=== PATIENT | male | born 1940 | race Caucasian/White ===

== ENCOUNTER 2018-05-31 12:48 | Outpatient (CLI) | payer MEDICARE, BC | END 2018-05-31 12:49 | disposition home or self-care (01) | LOC: ULT 12:48 | PROVIDERS: ATTEND Internal Medicine | DX: R07.9 Chest pain, unspecified (principal); I08.1 Rheumatic disorders of both mitral and tricuspid valves | CPT/HCPCS: 93306 ==

== ENCOUNTER 2020-08-13 08:07 | Outpatient (CLI) | payer MEDICARE, BC ==
--- NOTE | 2020-08-13 11:28 | CT ---
CT ANGIOGRAM NECK WITH CONTRAST: DATE: 08/13/2020. HISTORY: An 80-year-old male with TIA. TECHNIQUE: IV injection of Isovue-370. Arterial bolus chasing technique scan from aortic arch to skull base. Coronal and sagittal 3D MIP reconstructions. NASCET criteria used to evaluate degree of internal carotid artery stenosis. FINDINGS: There is a tiny focal minimal calcified plaque in the right proximal internal carotid artery near its origin that does not cause any stenosis. There is no stenosis of the bilateral internal carotid, bilateral common carotid, brachiocephalic, ri ght subclavian, or bilateral vertebral arteries. There is tiny focal minimal plaque at origin of the right vertebral artery that does not cause stenosis. There is high-grade degenerative disk disease at C5-6 and C6-7. There are multiple levels of right-sided severe facet osteoarthrosis. There is a tiny 5 mm right apical segment upper lobe pulmonary nodule close to the posterolateral pleural surfac e. According to Fleischner Society pulmonary nodule recommendations, a nodule less than 6 mm in a lo w risk patient requires no routine followup. In high risk patients, optional CT at 12 months is plaza ggested. It should be noted that this is a CTA of the neck, and only the lung apices are imaged. IMPRESSION: 1. No stenosis of major arteries of neck. 2. Cervical spondylosis. 3. Tiny 5 mm right apical pulmonary nodule. See above comments. POS: [facility]
[2020-08-13] MEDS ORDERED: Iopamidol-370 76% 500 ML 1 ML ONE (12:52)
== END 2020-08-13 08:08 | disposition home or self-care (01) ==
LOC: BICCT 08:07
PROVIDERS: ATTEND Internal Medicine
DX: G45.9 Transient cerebral ischemic attack, unspecified (principal); M47.812 Spondylosis without myelopathy or radiculopathy, cervical region; R91.1 Solitary pulmonary nodule
CPT/HCPCS: 70498; Q9967

== ENCOUNTER 2020-08-14 08:19 | Outpatient (CLI) | payer MEDICARE, BC ==
--- NOTE | 2020-08-14 10:20 | MRI ---
MRI brain with and without contrast: DATE: 08/14/2020 HISTORY: 80-year-old male with TIA G 45.9 TECHNIQUE: Multiplanar, multisequence MRI of the brain obtained pre and post IV injection of gadolinium based co ntrast agent. FINDINGS: There is no obstructive hydrocephalus. There is no midline shift or any other evidence of mass effect . There is no extra-axial fluid collection. There are mild chronic ischemic white matter changes due to microvascular atherosclerosis. There is otherwise no major intra-axial signal abnormality, abn ormal enhancement, mass, recent hemorrhage, or restricted diffusion. There is a large number of tiny dilated Virchow-Asher perivascular spaces throughout the bilateral basal ganglia and caudate nuc lei. There are few tiny right paramedian foci of T2 hyperintensity in the upper saadia, 2 of which measure approximately 4 x 2 mm each. These could be tiny old lacunar infarctions or dilated Virchow-R obin perivascular spaces. Unless is a history of neurologic deficit consistent with brainstem lacunar infarctions, the former is favored. There is a 0.6 cm rounded pineal lesion which has interme diate signal intensity on T2 WI, FLAIR, and T1 WI, with no enhancement. 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 IMPRESSION: 1) mild chronic ischemic white matter changes, expected for this age group. 2) otherwise no significant definite intracranial pathology.
== END 2020-08-14 08:20 | disposition home or self-care (01) ==
LOC: BICMRI 08:19
PROVIDERS: ATTEND Internal Medicine
DX: G45.9 Transient cerebral ischemic attack, unspecified (principal); I67.82 Cerebral ischemia
CPT/HCPCS: 70553

== ENCOUNTER 2021-09-08 11:10 | Outpatient (CLI) | payer MEDICARE, BC | END 2021-09-08 11:11 | disposition home or self-care (01) | LOC: BICCT 11:10 | PROVIDERS: ATTEND Internal Medicine | DX: R91.1 Solitary pulmonary nodule (principal); K80.20 Calculus of gallbladder without cholecystitis without obstruction | CPT/HCPCS: 71250 ==

== ENCOUNTER 2023-09-19 08:35 | Outpatient (CLI) | payer MEDICARE | END 2023-09-19 08:36 | disposition home or self-care (01) | LOC: BICCT 08:35 | DX: R91.1 Solitary pulmonary nodule (principal) | CPT/HCPCS: 71250 ==

== ENCOUNTER 2024-10-17 16:20 | Outpatient (CLI) | payer MEDICARE | END 2024-10-17 16:21 | disposition home or self-care (01) | LOC: BICRAD 16:20 | PROVIDERS: ATTEND Physician Assistant Medical | DX: K59.00 Constipation, unspecified (principal); R14.0 Abdominal distension (gaseous) | CPT/HCPCS: 74019 ==